=== PATIENT | male | born 1970 | race Caucasian/White ===

== ENCOUNTER → 2023-07-05 18:44 | Outpatient (REF) | payer OTHER, SELFPAY | LOC: MRI 3T 18:44 | PROVIDERS: ATTENDING PHYSICIAN Family Medicine | DX: R25.1 Tremor, unspecified (principal) | CPT/HCPCS: 70553; A9585 ==

== ENCOUNTER → 2023-09-03 18:38 | Outpatient (REF) | payer OTHER, SELFPAY | LOC: MRI 18:38 | PROVIDERS: ATTENDING PHYSICIAN Specialist; FAMILY PHYSICIAN Family Medicine | DX: R20.0 Anesthesia of skin (principal) | CPT/HCPCS: 72156; A9575 ==

== ENCOUNTER → 2024-04-25 08:41 | Outpatient (REF) | payer OTHER, SELFPAY | LOC: DHVS 08:41 | PROVIDERS: ATTENDING PHYSICIAN Surgery Vascular Surgery | DX: I73.9 Peripheral vascular disease, unspecified (principal) | CPT/HCPCS: 93922 ==

== ENCOUNTER 2024-07-10 21:40 | Emergency (ER) | payer OTHER, SELFPAY ==
[2024-07-10 21:56] VITALS: BP 102/66
[2024-07-10 22:25] LABS: % Basophils 0.1 % (0-2); % Immature Granulocytes 0.3 % (0-0.5); % Neutrophils 87.6 % (42.2-75.2); Absolute Lymphocytes 0.7 10^3/uL (1.2-3.4); Absolute Monocytes 0.5 10^3/uL (0.1-0.6); Absolute Neutrophils 8.6 10^3/uL (1.4-6.5); Hematocrit 41.8 % (39.0-52.0); Hemoglobin 14.1 g/dL (13.0-18.0); Mean Corp Hgb Conc. 33.7 g/dL (33.0-37.0); Mean Corpuscular Hgb 31.5 pg (27.0-31.0); Mean Corpuscular Volume 93.5 fL (80.0-94.0); Mean Platelet Volume 9.6 fL (7.4-10.4); Nucleated Red Blood Cells % 0 % (-); Platelet Count 198 10^3/uL (130-400); Red Blood Cell Count 4.47 10^6/uL (4.70-6.10); Red Cell Dist. Width 11.5 % (11.5-14.5); White Blood Cell Count 9.8 10^3/uL (4.8-10.8)
[2024-07-10 22:39] LABS: COVID-19 Antigen Negative (Negative)
[2024-07-10 22:45] LABS: ALT (SGPT) 31 U/L (0-50); AST (SGOT) 32 U/L (17-59); Albumin 4.1 g/dl (3.5-5.0); Alkaline Phosphatase 48 U/L (38-126); Blood Urea Nitrogen 17 mg/dl (9-20); Calcium 8.6 mg/dl (8.4-10.2); Carbon Dioxide 25 mmol/L (22-30); Chloride 98 mmol/L (98-107); Glucose 154 mg/dl (70-99); Potassium 3.9 mmol/L (3.5-5.1); Sodium 131 mmol/L (135-145); Total Bilirubin 0.6 mg/dl (0.2-1.3); Total Protein 6.6 g/dl (6.3-8.2); eGFR > 60.00
== END 2024-07-10 23:58 | disposition left against medical advice (07) ==
LOC: EMR 21:40
PROVIDERS: Emergency Medicine
DX: R50.9 Fever, unspecified (principal); Z11.52 Encounter for screening for COVID-19; Z53.21 Procedure and treatment not carried out due to patient leaving prior to being seen by health care provider
CPT/HCPCS: 99281; 80053; 85025; 87502; 87811

== ENCOUNTER → 2024-12-06 10:04 | Outpatient (REF) | payer OTHER, SELFPAY | LOC: HWRAD 10:04 | PROVIDERS: ATTENDING PHYSICIAN Nurse Practitioner Family | DX: R05.9 Cough, unspecified (principal) | CPT/HCPCS: 71046 ==